=== PATIENT | female | born 1970 | race Caucasian/White ===

== ENCOUNTER → 2021-05-02 09:16 | Outpatient (CLI) | payer OTHER, SELFPAY ==
--- NOTE | ~2021-05-02 | US_ITS ---
EXAMINATION: US thyroid EXAM DATE: 05/02/2021 09:28 INDICATION: E01.0 - Iodine-deficiency related diffuse (endemic) goiter. TECHNIQUE: Multiple grayscale and Doppler images of the thyroid were obtained (by a technologist who performed the scan) and subsequently reviewed. Individual nodules and recommendations may be reporte d in accordance with TI-RADS system as designated by the 2017 ACR White Paper TI-RADS committee. The re is no prior study for comparison. FINDINGS: Right there are lobe measures 3.5 x 1.0 x 1.3 cm, the left measuring 4.0 x 1.0 x 1.1 cm. There is ginna ogeneous thyroid echogenicity and mildly hypervascular parenchyma. Dimensions are within normal size limits. No focal thyroid nodule is identified. IMPRESSION: Mildly hypervascular but otherwise unremarkable thyroid parenchyma. Reviewed, dictated and finalized at location B.
== END ==
PROVIDERS: PCP Family Medicine; Visit Provider Family Medicine
DX: E01.0 Iodine-deficiency related diffuse (endemic) goiter (principal)
CPT/HCPCS: 76536

== ENCOUNTER → 2021-05-31 12:21 | Outpatient (CLI) | payer OTHER, SELFPAY ==
--- NOTE | ~2021-05-31 | MM_ITS ---
EXAMINATION: MM screening [facility] BI w terence HISTORY: Screening TECHNIQUE: Craniocaudal and mediolateral oblique 3-D tomosynthesis images were obtained and synthetic 2-D images were generated. CAD analysis was submitted and interpreted. COMPARISON: No prior mammogram is available for comparison at this institution. BREAST PARENCHYMAL COMPOSITION: There are scattered areas of fibroglandular density. FINDINGS: There are developing areas of bilateral breast asymmetry in the upper central aspect of bot h breasts. There are no suspicious calcifications. IMPRESSION: 1. Developing bilateral breast asymmetries. 2. Additional mammographic views and possible breast ultrasound are recommended. BI-RADS Category 0: Incomplete: Needs additional imaging evaluation. Reviewed, dictated and finalized at location A. IMPRESSION: 1. Developing bilateral breast asymmetries. 2. Additional mammographic views and possible breast ultrasound are recommended . BI-RADS Category 0: Incomplete: Needs additional imaging evaluation.
== END ==
PROVIDERS: PCP Family Medicine; Visit Provider Obstetrics & Gynecology
DX: Z12.31 Encounter for screening mammogram for malignant neoplasm of breast (principal); R92.8 Other abnormal and inconclusive findings on diagnostic imaging of breast
CPT/HCPCS: 77063; 77067

== ENCOUNTER → 2021-07-17 09:36 | Outpatient (CLI) | payer OTHER, SELFPAY ==
--- NOTE | ~2021-07-17 | MMUS_ITS ---
EXAMINATION: MM diagnostic esdras BI w terence, US breast BI limited HISTORY: Bilateral breast asymmetries on screening mammogram TECHNIQUE: Additional 3-D tomosynthesis images of the breasts were performed and synthetic 2-D images were generated. CAD analysis was submitted and interpreted. High resolution limited bilateral breast ultrasound was performed. COMPARISON: 05/31/2021, 12/05/2019, 11/25/2018 BREAST PARENCHYMAL COMPOSITION: The breasts are heterogeneously dense, which may obscure small masses . FINDINGS: MAMMOGRAPHIC FINDINGS: Right breast: There is a return to baseline fibroglandular appearance with spot compression of the ri ght breast in the area questioned on screening mammogram. Left breast: There is a 6 mm round, obscured, equal density mass in the middle third breast at the 9: 00 location 5 cm from the nipple. This appears slightly smaller in size than on comparison examinatio ns. ULTRASOUND: Right breast: There is no evidence of focal abnormal solid or cystic mass in the vicinity of the mamm ographic findings in question. Left breast: There is an 8 mm x 6 mm oval, circumscribed, parallel, hypoechoic mass with no posterior features or internal vascularity at the 10:00 location 2.5 cm from the nipple. A 4 mm mass with latisha lar sonographic features is seen at the 11:00 location 4 cm from the nipple. IMPRESSION: 1. Probably benign left breast masses 2. Recommend 6 month follow-up left diagnostic mammogram and ultrasound. BI-RADS category 3, probably benign findings. Reviewed, dictated and finalized at location A. IMPRESSION: 1. Probably benign left breast masses 2. Recommend 6 month follow-up left diagnostic mammogram and ultrasound. BI-RADS category 3, probably benign findings.
== END ==
PROVIDERS: Visit Provider Obstetrics & Gynecology
DX: R92.8 Other abnormal and inconclusive findings on diagnostic imaging of breast (principal)
CPT/HCPCS: 76642; 77062; 77066; G0279

== ENCOUNTER → 2022-01-20 08:51 | Outpatient (CLI) | payer OTHER, SELFPAY ==
--- NOTE | ~2022-01-20 | MMUS_ITS ---
EXAMINATION: MM diagnostic esdras LT w terence, US breast LT limited HISTORY: Six-month follow-up of probably benign left breast masses TECHNIQUE: ML, MLO and craniocaudal full field and spot 3-D tomosynthesis images of the left breast w ere performed and synthetic 2-D images were generated. CAD analysis was submitted and interpreted. Hi gh resolution upper inner and lower inner left breast ultrasound was performed. COMPARISON: 07/17/2021 bilateral diagnostic mammography and bilateral Limited breast ultrasound BREAST PARENCHYMAL COMPOSITION: The breasts are heterogeneously dense, which may obscure small masses . FINDINGS: MAMMOGRAPHIC FINDINGS: An approximately 5 mm mid to upper mass is noted in the inner mid left breast in the middle third dep th. The margins appear circumscribed. ULTRASOUND: 10:00 2.5 cm from nipple: There is a mildly irregular incompletely circumscribed 4.8 x 5.3 mass with posterior shadowing. This lesion is suspicious. Biopsy is recommended. IMPRESSION: 1. Suspicious left breast 10:00 5.3 mm mildly irregular incompletely circumscribed mass 2.5 cm from n ipple 2. Ultrasound-guided biopsy is recommended. BI-RADS category 4, suspicious findings. Dr. Davenport telephoned the report an ultrasound-guided biopsy recommendation on 01/20/2022 at 1015 hours to triage Department voicemail Reviewed, dictated and finalized at location A. PROCESS TECHNICIAN IMPRESSION: 1. Suspicious left breast 10:00 5.3 mm mildly irregular incompletely circumscri bed mass 2.5 cm from nipple 2. Ultrasound-guided biopsy is recommended. BI-RADS category 4, suspicious findings. Dr. Davenport telephoned the report an ultrasound-guided biopsy recommendation on at 1015 hours to triage Department voicemail
== END ==
PROVIDERS: Referring Provider Obstetrics & Gynecology Gynecology; Visit Provider Obstetrics & Gynecology
DX: R92.8 Other abnormal and inconclusive findings on diagnostic imaging of breast (principal)
CPT/HCPCS: 76642; 77061; 77065; G0279

== ENCOUNTER → 2023-11-25 14:19 | Outpatient (CLI) | payer OTHER, SELFPAY ==
--- NOTE | ~2023-11-25 | CT_ITS ---
EXAMINATION: CT abdomen pelvis wo con DATE: 11/25/2023 14:30 INDICATION: Ventral hernia without obstruction. TECHNIQUE: Computed tomography (CT) of the abdomen and pelvis was performed without intravenous contr ast. The dose-length product was 620.63 mGy-cm. Automated exposure control and iterative reconstruction technique were employed. COMPARISON: CT dated 01/12/2018 FINDINGS: Lung bases are unremarkable. Heart size normal. No significant pleural or pericardial effus ion. There is a small fat-containing umbilical hernia. No evidence for bowel intrusion. The appendix is mildly prominent measuring 7 mm without significant surrounding inflammatory change, likely of no significance. The liver, spleen, pancreas, adrenal glands and kidneys are unremarkable. Gallbladder i s present. Nonobstructive bowel gas pattern. No free air or free fluid. Moderate disc narrowing and e ndplate hypertrophy at L5-S1. No acute osseous abnormality. IMPRESSION: 1. No acute abdominal abnormality. 2: Small fat-containing umbilical hernia. Reviewed, dictated and finalized at location B. T OFFICER
== END ==
PROVIDERS: PCP Family Medicine; Visit Provider Family Medicine
DX: R10.9 Unspecified abdominal pain (principal); K43.9 Ventral hernia without obstruction or gangrene; K42.9 Umbilical hernia without obstruction or gangrene
CPT/HCPCS: 74176

== ENCOUNTER 2024-11-15 10:37 | Outpatient (CLI) | payer OTHER, SELFPAY ==
--- NOTE | ~2024-11-15 | MM_ITS ---
EXAMINATION: MM screening [facility] BI w terence HISTORY: Screening TECHNIQUE: Craniocaudal and mediolateral oblique 3-D tomosynthesis images were obtained and synthetic 2-D images were generated. CAD analysis was submitted and interpreted. COMPARISON: Comparison to multiple prior studies sequentially, with oldest reviewed study dated 01/09. BREAST PARENCHYMAL COMPOSITION: Not dense: There are scattered areas of fibroglandular density. FINDINGS: There are benign appearing low density masses bilaterally which are stable or decreased in size. There is no evidence of suspicious mass, calcification, or architectural distortion to suggest malignancy in either breast. There has been no suspicious interval change. IMPRESSION: 1. No mammographic evidence of malignancy. 2. Recommend routine screening mammography in one year. BI-RADS Category 2: Benign finding(s). Reviewed, dictated and finalized at location B. T OFFICER
== END 2024-11-15 10:38 | disposition home or self-care (01) ==
LOC: MICIMG 10:40
PROVIDERS: Visit Provider Nurse Practitioner Family
DX: Z12.31 Encounter for screening mammogram for malignant neoplasm of breast (principal)
CPT/HCPCS: 77063; 77067